=== PATIENT | female | born 1990 | race Two or more races ===

== ENCOUNTER 2025-06-17 09:08 | Outpatient (AMB) | payer MEDICAID, SELFPAY ==
[2025-06-17 09:27] VITALS: BP 126/86; PULSE 91; RESP 17; TEMP 36.2; O2SAT 96; BMI 35.8
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
== END 2025-06-17 10:02 | disposition home or self-care (01) ==
LOC: HODSOBC 09:08
PROVIDERS: Supervising Provider Advanced Practice Midwife; Visit Provider Advanced Practice Midwife
DX: O09.92 Supervision of high risk pregnancy, unspecified, second trimester (principal); O99.342 Other mental disorders complicating pregnancy, second trimester; F41.9 Anxiety disorder, unspecified; Z3A.19 19 weeks gestation of pregnancy; Z23 Encounter for immunization; Z87.891 Personal history of nicotine dependence
CPT/HCPCS: 90471; 90715; 99205; G0463

== ENCOUNTER 2025-07-06 22:33 | Observation (INO) | payer MEDICAID, SELFPAY ==
[2025-07-06 22:41] VITALS: BP 135/92; PULSE 100
[2025-07-06 23:01] VITALS: BP 134/84; PULSE 94
[2025-07-06 23:02] VITALS: BP 135/92; PULSE 100; RESP 16; TEMP 37.3; BMI 35.3
[2025-07-06 23:16] VITALS: BP 118/76; PULSE 94
--- NOTE | 2025-07-06 23:16 | XR_ITS ---
Examination: Complete OB ultrasound greater than 14 weeks Date and time of exam: July 06, 2025, 11:52 PM INDICATIONS: Decreased movement today Findings: Viable intrauterine single fetus with single amniotic sac presentation Vertex Cardiac motion 132 BPM Placenta anterior grade 2 Umbilical cord insertion seen. Amniotic fluid index 17.3 cm Cervix 4.76 cm Ovary is obscured by bowel gas. Composite estimated gestational age based on BPD, head circumference, abdominal circumference, femur length is 36 weeks 1 day Estimated weight 2875.9 g. Survey of intracranial anatomy, spinal anatomy, abdominal anatomy, four-chamber heart performed with no abnormalities identified. Impression: Viable intrauterine gestation vertex presentation.
[2025-07-06 23:31] VITALS: BP 124/82; PULSE 92
[2025-07-06 23:47] VITALS: BP 134/90; PULSE 90
[2025-07-07] VITALS (7 sets, daily range): BP systolic 130–142; BP diastolic 71–96; PULSE 83–97
--- NOTE | 2025-07-07 00:05 | XR_ITS ---
Examination: Biophysical profile, ultrasound Date and time of exam: July 07, 2025, 0029 hours INDICATIONS: Decreased movement today Technique: Multiple transabdominal sonographic images of the pelvis abdomen obtained. Attention is directed to the breathing movement, gross body movement, amniotic fluid volume and tone. Findings: Amniotic fluid index 16.8 cm Total biophysical profile is 8 of 8. breathing movement is 2. Gross body movement is 2. tone is 2. Qualitative amniotic fluid volume is 2 Impression: Biophysical profile is 8 of 8.
--- NOTE | 2025-07-07 01:38 | PRELIM_ITS ---
Obstetric ultrasound with Doppler. July 06, 2025 2352 hours Clinical history: Decreased movement Comparison: None. Findings: There is a gravid uterus with a live fetus in vertex presentation of mean gestational age 36 weeks and 1 day (by biometry). cardiac activity is present at a heart rate of 132 beats per minute. The placenta is anterior in location, maturity grade 2. There is no evidence of placenta previa or retroplacental hemorrhage. Amniotic fluid is adequate (CECILIA = 17.3 cm). Estimated weight is 2876 grams+/- 426 grams. The ovaries were not visualized. No abnormalities by Doppler. Impression: Gravid uterus with a single live fetus in vertex presentation of mean gestational age 36 weeks 1 day. Report Electronically Signed By: Dg Reina 07/07/2025 1:37:14 AM [EST]
[2025-07-07 02:09] LABS: Collection Type, Urine Clean Catch
[2025-07-07 02:10] LABS: Basophils # (Auto) 0.0 Thou/mm3 (0.0-0.2); Basophils % (Auto) 0 % (0-2.5); Eosinophils # (Auto) 0.1 Thou/mm3 (0.0-0.5); Eosinophils % (Auto) 2 % (0-10); Hematocrit 34.1 % (36.0-46.0); Hemoglobin 11.5 g/dL (12.0-16.0); Immature Granulocytes Auto 0.05 Thou/mm3 (0.00-0.00); Lymphocytes # (Auto) 1.8 Thou/mm3 (1.0-4.8); Lymphocytes % (Auto) 25 % (10-50); Mean Corpuscular HGB Conc 33.7 g/dl (31.0-37.0); Mean Corpuscular Hemoglobin 29.6 pg (25.0-35.0); Mean Corpuscular Volume 88 fL (80-100); Monocytes # (Auto) 0.7 Thou/mm3 (0.0-0.8); Monocytes % (Auto) 10 % (0-12); Neutrophils # (Auto) 4.5 Thou/mm3 (1.8-7.7); Neutrophils % (Auto) 62 % (37-80); Nucleated Red Blood Cell # 0.02 Thou/mm3 (0.00-0.00); Nucleated Red Blood Cell % 0 /100 WBC (0); Platelet Count 192 Thou/mm3 (140-440); RDW Standard Deviation 43.8 fL (36.4-46.3); Red Blood Count 3.88 Miln/mm3 (4.00-5.20); White Blood Count 7.3 Thou/mm3 (3.6-11.0)
[2025-07-07 02:14] LABS: Bilirubin,Urine Negative (Negative); Blood,Urine Negative (Negative); Clarity,Urine Clear (Clear/Hazy); Color,Urine Yellow (Lt Yel-Yel); Glucose, Urine Negative (Negative); Ketones,Urine Negative (Negative); Leukocyte Esterase,Urine Negative (Negative); Nitrite,Urine Negative (Negative); PH,Urine 6.5 (5.0-7.0); Protein,Urine Negative (Neg - Trace); RBC,Urine 3 /hpf (0-3); Specific Gravity,Urine 1.020 (1.001-1.035); Squamous Epithelial Cell,Urine 2 /hpf (0-5); Urobilinogen,Urine Negative mg/dL (0.0-1.0); WBC,Urine 2 /hpf (0-5)
[2025-07-07 02:31] LABS: Alanine Aminotransferase 143 U/L (10-49); Albumin, Serum 3.5 gm/dL (3.5-5.0); Albumin/Globulin Ratio 1.5 (1.2-2.2); Alkaline Phosphatase 175 U/L (46-116); Anion Gap 10 (7-16); Aspartate Amino Transferase 72 U/L (0-34); BUN/Creatinine Ratio 14 Ratio (12-20); Bilirubin,Total 0.4 mg/dL (0.3-1.2); Blood Urea Nitrogen 7 mg/dL (9-23); Calcium 9.5 mg/dL (8.3-10.6); Calcium (Corrected) 9.9 mg/dL (8.5-10.1); Carbon Dioxide 21.9 mMol/L (20.0-31.0); Chloride 106 mMol/L (98-107); Creatinine (Component) 0.5 mg/dL (0.6-1.3); Estimated Creatinine Clearance 156.7 mL/min (>60); Fibrinogen 589 mg/dL (175-375); Globulin 2.4 gm/dL (2.3-3.5); Glucose 116 mg/dL (74-106); INR 0.9 (0.9-1.3); LDH (Lactate Dehydrogenase) 171 U/L (120-246); Osmolality,Calculated 274 (275-295); Partial Thromboplastin Time 24.9 Seconds (22.0-36.0); Potassium 3.8 mMol/L (3.4-5.1); Prothrombin Time 9.8 Seconds (9.0-12.2); Sodium 138 mMol/L (136-145); Total Protein 5.9 gm/dL (5.7-8.2); Uric Acid 5.0 mg/dL (3.1-7.8); eGFR > 60 See Note
--- NOTE | 2025-07-07 02:48 | PRELIM_ITS ---
Obstetric ultrasound (limited) with Doppler. July 07, 2025 at 0029 hours Clinical history: Decreased movement. Comparison: Ultrasound of July 06, 2025. Findings: There is a gravid uterus with a live fetus. cardiac activity is present at a heart rate of 133 beats per minute. Amniotic fluid is adequate (CECILIA = 16.8 cm). No abnormalities by Doppler. Biophysical Profile: Breathing : 2 Tone : 2 Amniotic fluid : 2 Movement : 2 BPP Score : 8/8 Impression: Gravid uterus with a single live fetus. Normal biophysical profile as recorded by the technologist infectious disease. Report Electronically Signed By: Dg Reina 07/07/2025 2:47:26 AM [EST]
== END 2025-07-07 03:15 | disposition home or self-care (01) ==
PROVIDERS: Admitting Provider Obstetrics & Gynecology; Visit Provider Obstetrics & Gynecology
DX: O36.8130 Decreased fetal movements, third trimester, not applicable or unspecified (principal); Z3A.36 36 weeks gestation of pregnancy
CPT/HCPCS: 36415; 59899; 76805; 76819; 80053; 81001; 83615; 84550; 85025; 85384; 85610; 85730

== ENCOUNTER 2025-07-13 10:00 | Outpatient (AMB) | payer MEDICAID, SELFPAY ==
[2025-07-13 10:17] VITALS: BP 137/85; PULSE 94; RESP 17; TEMP 36.3; O2SAT 97; BMI 36.7
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
== END 2025-07-13 10:58 | disposition home or self-care (01) ==
PROVIDERS: Supervising Provider Obstetrics & Gynecology; Visit Provider Obstetrics & Gynecology
DX: O09.893 Supervision of other high risk pregnancies, third trimester (principal); O26.893 Other specified pregnancy related conditions, third trimester; L29.9 Pruritus, unspecified; Z3A.36 36 weeks gestation of pregnancy; Z87.891 Personal history of nicotine dependence; Z36.85 Encounter for antenatal screening for Streptococcus B
CPT/HCPCS: 99215; G0463

== ENCOUNTER 2025-07-21 08:58 | Outpatient (AMB) | payer MEDICAID, SELFPAY ==
[2025-07-21 09:09] VITALS: BP 137/92; PULSE 90; RESP 18; TEMP 36.4; O2SAT 97; BMI 36.7
--- NOTE | 2025-07-21 09:09 | OBCLNT_ITS ---
Vital Signs 07/21/25 09:09 Height 1.52 m Height Method Stated Weight 84.878 kg Weight Measurement Method Standing Scale BMI 36.7 BP 137/92 H Blood Pressure Source Automatic Cuff Blood Pressure Location Left Upper Arm Position Sitting Respiration 18 Pulse 90 Pulse Source Monitor Temp 97.5 F Temp Source Oral Pulse Oximetry (%) 97 Oxygen Delivery Method Room Air Allergies/Home Meds Allergies & Medications Allergies No Known Allergies Allergy (Verified 07/21/25 09:10) Medication Reconciliation vits no.126-ferrous fum 28 mg iron-folic acid 800 mcg tablet (Classic ) 1 tab PO DAILY 06/17/25 [History Confirmed 07/21/25] ursodiol 200 mg capsule 200 mg PO BID #30 caps 07/13/25 [Rx Confirmed 07/21/25] ursodiol 200 mg capsule 200 mg PO BID #60 caps 07/21/25 [Rx] Intake Visit Data Collection New Patient or Established: Established Patient (seen at [facility] within 3 years) Reason for Visit:: CARE 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 1. Little interest or pleasure in doing things: not at all 2. Feeling down, depressed, or hopeless: not at all Total score: 0 PHQ-9 3. Trouble falling or staying asleep, or sleeping too much: Not at all 4. Feeling tired or having little energy: Not at all 5. Poor appetite or overeating: Not at all 6. Feeling bad about yourself - or that you are a failure or have let yourself or your family down: Not at all 7. Trouble concentrating on things, such as reading the newspaper or watching television: Not at all 8. Moving or speaking so slowly that other people could have noticed? - Or the opposite - being so fidgety or restless that you have been moving around a lot more than usual: not at all 9. Thoughts that you would be better off or of hurting yourself in some way: Not at all Total score: 0 Source: Developed by Drs. Jomar Akbar, Jesica Miller, Wolf Rodriguez and colleagues, with an educational moshe from [employer]. Depression screen completed yes Social History Living Situation History Lives With: Family Housing: House Tobacco History Smoking Status: Former smoker Alcohol History Alcohol Intake: Former Domestic Abuse History Do You Feel Safe at Home: Yes Care OB Visit Log OB Flowsheet Initial Weight: Not Recorded Date -?-?-?-?-?-?-?-?-?-?-?-?- EGA Weight BP Alb Glu CTX Pres Fundal ht FHR Mov Dilation Station Effacement Hx Notes Visit Note 06/17/25 -?-?-?-?-?-?-?-?-?-?--?-?- 33w 1d 83.234 kg 126/86 absent unknown 33 145 active 34-year-old 3 para 2 for OBI. Patient has a history of irregular menses and no dates. By sonogram at Dr Carrion's office patient's due August 03, 2025. No labs available today. Denies leaking, bleeding, contractions. Reports movement. And patient has a history of anxiety. 34-year-old 3 para 2 for OBI. Patient has a history of irregular menses and no dates. By sonogram at Dr Carrion's office patient's due August 03, 2025. No labs available today. Denies leaking, bleeding, contractions. Reports movement. And patient has a history of anxiety.last visit with dr carrion, 04/18 Third trimester labs with A1c and CMP, CBC and RPR today. [facility] release of records from Dr Carrion's. Tdap today. Discussed labor. Increase fluids. Discussed PIH precautions. Return in 2 weeks OB check Third trimester labs with A1 c and CMP, CBC and RPR today. Medical release of records from Dr Carrion's. Tdap today. Discussed labor. Increase fluids. Discussed PIH precautions. Return in 2 weeks OB check, TDAP. UA: neg protein, repeat BP: 126/86 Third trimester labs with A1 c and CMP, CBC and RPR today. Medical release of records from Dr Maxwell. Tdap today. Discussed labor. Increase fluids. Discussed PIH precautions. Return in 2 weeks OB check, TDAP. UA: neg protein, repeat BP: 126/86. TDAP 07/13/25 -?-?-?-?-?-?-?-?-?-?-?-?- 36w 6d 85.275 kg 137/85 absent cephalic 36 124 active Patient did not do labs at Dr Maxwell. Reports good movement. Denies any signs symptoms of labor. Denies leaking or bleeding. Patient complains of itching over her body including feet and hands. Patient did not do labs at [facility]. Reports good movement. Denies any signs symptoms of labor. Denies leaking or bleeding. Patient complains of itching over her body including feet and hands. URINE: trace protein gbs today ordered OB panel, 1 hour GTT, A1c, CMP, bili, and bile acids. Discussed labor precautions and kick count. Increase fluids. Started on ursodiol 200 twice daily. Return in a week OB check 07/21/25 -?-?-?-?-?-?-?-?-?-?-?-?- 38w 0d 84.878 kg 137/92 absent cephalic 38 135 active Increase eating. Reports good movement. Denies any signs symptoms of labor. Denies leaking, denies bleeding, denies contractions. Increase eating. Reports go od movement. Denies any signs symptoms of labor. Denies leaking, denies bleeding, denies contractions. PIH w/u: elevated livers, BP Increase eating. Reports go od movement. Denies any signs symptoms of labor. Denies leaking, denies bleeding, denies contractions. PIH w/u: elevated livers, BP 140/90, teens/80, CECILIA: 11.3, 3380gm./vtx Ursodiol 200 twice daily ordered. Patient to [facility] for NST BPP, CMP, complete OB, discuss labor precautions. Kick counts twice a day. Increase fluids. 10-week OB check. Schedule induction of labor for July 29, 2025 Ursodiol 200 twice daily ord ered. Patient to [facility] for NST BPP, CMP, complete OB, discuss labor precautions. Kick counts twice a day. Increase fluids. 10-week OB check. Schedule induction of labor for July 29, 2025. Rhogam today,GBS- BIN Calculator Estimated Delivery Date Method Current WG Current Estimate 08/04/25 Ultrasound #2 38w 0d Other Estimates 11/10/25 LMP (Certain) 24w 0d 08/02/25 Ultrasound #1 38w 2d Notes Visit Date: 07/13/25 Last Updated by: Britt Russell CNM 34 yo . poor dates. LMP:02/03/25. EDC: 11/10/25. 1st sono: 04/01/25. IUP @22w1. Final EDC: 08/04/25 Visit Date: 06/17/25 Last Updated by: Britt Russell CNM 34 yo . NO dates. LMP by sono: 08/03/25 Office Procedures OB Clinic LOC & Office Proc's Nursing/Assessment Patient Status: Established Patient OB Clinic Nursing Assessment: Medication Reconciliation, Update PMH in EMR and Vital Signs OB Clinic Coordination of Care: Complex Care and Chronic Disease 1-5, Consent,records obtained, informed consent, Education Simp Pt/Fam, Lab and Imaging orders, Results/Orders obtained and Staff clarify orders Special Needs: Heart tones Established Patient Charge Established Patient Point Assignment: 135 Established Patient Point Charge: EP Level 4 (120-155) Office Meds Rhophylac 1,500 unit (300 mcg)/2 mL injection syringe Performing Provider: Britt Russell CNM Performing Location: [facility] Administered by: Obdulia Mercado MA on 07/21/25 14:01 Dose Route Admin Location Dispensed Lot Number Expiration Date [facility] [employer] Superintendent 1,500 unit IM LEFT GLUTEUS 2 mL [id number] 06/16/27 28689-050-01 [facility] [facility] Assessment & Plan Diagnosis / Problem List (1) Encounter for supervision of high risk in third trimester, antepartum: Status: Acute (2) Cholestasis during : Status: Acute Plan Refill ursodiol 200 twice daily. Patient to labor and delivery today for complete OB, PIH workup, NST BPP. Scheduled induction of labor for July 29. Discussed labor precautions with patient. Kick counts twice a day. Return in a week OB check. RHOGAM today Additional Plan Follow Up: 1 Week (obc)
== END 2025-07-21 09:55 | disposition home or self-care (01) ==
PROVIDERS: Supervising Provider Obstetrics & Gynecology; Visit Provider Obstetrics & Gynecology
DX: O09.893 Supervision of other high risk pregnancies, third trimester (principal); O26.643 Intrahepatic cholestasis of pregnancy, third trimester; Z3A.38 38 weeks gestation of pregnancy; Z29.13 Encounter for prophylactic Rho(D) immune globulin; Z87.891 Personal history of nicotine dependence
CPT/HCPCS: 96372; 99214; J3490; G0463; J2791

== ENCOUNTER 2025-07-21 13:42 | Inpatient (IN) | payer MEDICAID, SELFPAY ==
[2025-07-21] VITALS (84 sets, daily range): BP systolic 112–163; BP diastolic 70–108; PULSE 75–100; RESP 16–97; TEMP 36.4–36.9; O2SAT 91–98; BMI 36.5
--- NOTE | 2025-07-21 10:12 | XR_ITS ---
Examination: Complete OB ultrasound greater than 14 weeks Date and time of exam: July 21, 2025, 1104 hrs. Indications: Diagnosis cholestasis of . Findings: Viable intrauterine single fetus with single amniotic sac presentation cephalic. Cardiac motion 1:30 BPM. Placenta anterior grade 2. Umbilical cord insertion 3 vessel seen. Amniotic fluid index 13.8 cm. spine maternal right. Cervix 2.91 cm. Ovaries obscured by bowel gas.. Composite estimated gestational age based on BPD, head circumference, abdominal circumference, femur length is 37 weeks 5 days. Estimated weight 3380.6 g. Survey of intracranial anatomy, spinal anatomy, abdominal anatomy, four-chamber heart performed with no abnormalities identified. Impression: Viable intrauterine gestation cephalic presentation..
--- NOTE | 2025-07-21 10:13 | XR_ITS ---
Examination: Biophysical profile, ultrasound Date and time of exam: 07/21/2025, 11:04 AM INDICATION: well-being Technique: Multiple transabdominal sonographic images of the pelvis abdomen obtained. Attention is directed to the breathing movement, gross body movement, amniotic fluid volume and tone. Findings: Heart rate: 1 33 bpm CECILIA: 16.8 cm Total biophysical profile is 8 of 8. breathing movement is 2. Gross body movement is 2. tone is 2. Qualitative amniotic fluid volume is 2 Impression: Biophysical profile is 8 of 8.
[2025-07-21 11:03] LABS: Collection Type, Urine Clean Catch
[2025-07-21 11:16] LABS: Basophils # (Auto) 0.0 Thou/mm3 (0.0-0.2); Basophils % (Auto) 0 % (0-2.5); Eosinophils # (Auto) 0.1 Thou/mm3 (0.0-0.5); Eosinophils % (Auto) 2 % (0-10); Hematocrit 32.7 % (36.0-46.0); Hemoglobin 11.3 g/dL (12.0-16.0); Immature Granulocytes Auto 0.07 Thou/mm3 (0.00-0.00); Lymphocytes # (Auto) 1.7 Thou/mm3 (1.0-4.8); Lymphocytes % (Auto) 23 % (10-50); Mean Corpuscular HGB Conc 34.6 g/dl (31.0-37.0); Mean Corpuscular Hemoglobin 30.0 pg (25.0-35.0); Mean Corpuscular Volume 87 fL (80-100); Monocytes # (Auto) 0.9 Thou/mm3 (0.0-0.8); Monocytes % (Auto) 12 % (0-12); Neutrophils # (Auto) 4.6 Thou/mm3 (1.8-7.7); Neutrophils % (Auto) 63 % (37-80); Nucleated Red Blood Cell # 0.00 Thou/mm3 (0.00-0.00); Nucleated Red Blood Cell % 0 /100 WBC (0); Platelet Count 173 Thou/mm3 (140-440); RDW Standard Deviation 42.9 fL (36.4-46.3); Red Blood Count 3.77 Miln/mm3 (4.00-5.20); White Blood Count 7.3 Thou/mm3 (3.6-11.0)
[2025-07-21 11:24] LABS: Bacteria,Urine 4+; Bilirubin,Urine Negative (Negative); Blood,Urine Negative (Negative); Clarity,Urine Turbid (Clear/Hazy); Color,Urine Drk-Yellow (Lt Yel-Yel); Glucose, Urine Negative (Negative); Ketones,Urine Negative (Negative); Leukocyte Esterase,Urine Positive (Negative); Nitrite,Urine Negative (Negative); PH,Urine 6.0 (5.0-7.0); Protein,Urine 1+ (Neg - Trace); RBC,Urine 18 /hpf (0-3); Specific Gravity,Urine 1.028 (1.001-1.035); Squamous Epithelial Cell,Urine 49 /hpf (0-5); Urobilinogen,Urine 4.0 mg/dL (0.0-1.0); WBC,Urine 20 /hpf (0-5)
[2025-07-21 11:33] LABS: Alanine Aminotransferase 181 U/L (10-49); Albumin, Serum 3.4 gm/dL (3.5-5.0); Albumin/Globulin Ratio 1.4 (1.2-2.2); Alkaline Phosphatase 226 U/L (46-116); Anion Gap 10 (7-16); Aspartate Amino Transferase 88 U/L (0-34); BUN/Creatinine Ratio 10 Ratio (12-20); Bilirubin,Total 0.6 mg/dL (0.3-1.2); Blood Urea Nitrogen 5 mg/dL (9-23); Calcium 9.4 mg/dL (8.3-10.6); Calcium (Corrected) 9.9 mg/dL (8.5-10.1); Carbon Dioxide 22.5 mMol/L (20.0-31.0); Chloride 107 mMol/L (98-107); Creatinine (Component) 0.5 mg/dL (0.6-1.3); Estimated Creatinine Clearance 153.2 mL/min (>60); Globulin 2.4 gm/dL (2.3-3.5); Glucose 73 mg/dL (74-106); LDH (Lactate Dehydrogenase) 228 U/L (120-246); Osmolality,Calculated 273 (275-295); Potassium 3.8 mMol/L (3.4-5.1); Sodium 139 mMol/L (136-145); Total Protein 5.8 gm/dL (5.7-8.2); eGFR > 60 See Note
[2025-07-21 11:42] LABS: Uric Acid 5.8 mg/dL (3.1-7.8)
[2025-07-21 11:44] LABS: Fibrinogen 528 mg/dL (175-375); INR 0.9 (0.9-1.3); Partial Thromboplastin Time 25.1 Seconds (22.0-36.0); Prothrombin Time 9.8 Seconds (9.0-12.2)
[2025-07-21 12:54] LABS: Creatinine,Random Urine 210 mg/dL (30-125); Protein Total, Random Urine 143 mg/dL (1-14)
--- NOTE | 2025-07-21 13:18 | PD.ADDPROG ---
Addendum Progress Note Addendum Date of report being addended: 07/21/25 Narrative: The patient is a 34-year-old G4, P3 at 38 weeks with cholestasis, elevated liver enzymes, elevated blood pressures and a urine protein creatinine ratio that is abnormal. Diagnosis is severe preeclampsia and cholestasis. Patient was going to be admitted and induced. Biophysical is normal and NST reactive ultrasound reveals a normal size fetus vertex presentation. Patient at this time declines induction. Stating she has to go home and get her stuff . A urine drug screen was ordered but not done yet. At this time patient will sign out AMA. The risks of , seizures and maternal were given.
[2025-07-21 15:09] LABS: Basophils # (Auto) 0.0 Thou/mm3 (0.0-0.2); Basophils % (Auto) 0 % (0-2.5); Eosinophils # (Auto) 0.1 Thou/mm3 (0.0-0.5); Eosinophils % (Auto) 2 % (0-10); Hematocrit 34.7 % (36.0-46.0); Hemoglobin 12.0 g/dL (12.0-16.0); Immature Granulocytes Auto 0.08 Thou/mm3 (0.00-0.00); Lymphocytes # (Auto) 1.7 Thou/mm3 (1.0-4.8); Lymphocytes % (Auto) 23 % (10-50); Mean Corpuscular HGB Conc 34.6 g/dl (31.0-37.0); Mean Corpuscular Hemoglobin 29.9 pg (25.0-35.0); Mean Corpuscular Volume 87 fL (80-100); Monocytes # (Auto) 0.7 Thou/mm3 (0.0-0.8); Monocytes % (Auto) 9 % (0-12); Neutrophils # (Auto) 4.9 Thou/mm3 (1.8-7.7); Neutrophils % (Auto) 66 % (37-80); Nucleated Red Blood Cell # 0.02 Thou/mm3 (0.00-0.00); Nucleated Red Blood Cell % 0 /100 WBC (0); Platelet Count 185 Thou/mm3 (140-440); RDW Standard Deviation 42.4 fL (36.4-46.3); Red Blood Count 4.01 Miln/mm3 (4.00-5.20); White Blood Count 7.5 Thou/mm3 (3.6-11.0)
[2025-07-21 15:19] LABS: Amphetamine/Metham Scrn,Ur OB Negative (Negative); Benzoylecgonine Screen, Ur OB Negative (Negative); Opiate Screen,Urine OB Negative (Negative); THC Screen,Urine OB Negative (Negative)
[2025-07-21 16:15] LABS: Syphilis Nonreactive (Nonreactive)
[2025-07-21] MEDS: RINGERS LACTATED 1000 ML 1,000 ML 100 ML IV (17:31)
--- NOTE | 2025-07-21 19:38 | PD.LDHP ---
Documentation for date of: 07/21/25 OB Labor/Induct. HPI History of Present Illness Chief complaint: Induction of labor for cholestasis : 3 Para: 2 Term pregnancies: 2 pregnancies: 1 Living children: 2 History of Abortions: Spontaneous and Elective: 1 History of Vaginal deliveries: 2 History of sections: No History of : No BIN: 08/04/25 Gestational Age (weeks): 38 Gestational Age (days): 0 Indication for induction: other (Cholestasis, -induced hypertension with proteinuria) History of present illness: The patient is a 34-year-old -1-0-2 at 38 weeks by LMP consistent with a 22-week ultrasound . She had a history of a vaginal delivery 19 years ago of a 36-week infant followed by a term delivery 15 years ago. She started her care with Dr Gonzalez and went to one-two visits. She had an ultrasound performed at 22 weeks. She then presented to the [facility] OB clinic and was seeing Britt Russell at approximately 33 weeks . She has been reporting itching and was diagnosed with cholestasis. Her bile acids are elevated at over 22. Her liver function tests are both elevated. She was sent over for an NST/ CECILIA and her blood pressures are noted to be elevated. Her UPCR ratio corresponded to 875 mg protein in a 24-hour urine. Her AST was 88 ALT was 181. The patient had an ultrasound revealing an intrauterine measuring 3380 g in vertex presentation. The patient was admitted for an induction of labor secondary to cholestasis with proteinuria and some elevated blood pressures. Of note her blood type is O- and she is rubella nonimmune her strep screen is negative. She just got RhoGAM in the office recently. She has been very noncompliant with her visits. History of Present Dating criteria: LMP confirmed by 2nd trimester US Adequate Care: Yes Ultrasounds: normal mid trimester US Obstetrical complications: other (Limited care, cholestasis diagnosed recently) Medical complications: none Labs Maternal Blood Type: O Neg Labs: Negative: RPR, Hepatitis B, Rubella Titre (Rubella nonimmune), HIV, Chlamydia, Gonorrhea and Group Beta Strep and Unknown: Herpes Type 1, Herpes Type 2 and Covid-19 Past Medical History Surgical History SURGICAL: Negative Section Meds Home Medications and Allergies Home Medications ?Medication ?Instructions ?Recorded ?Confirmed ?Type vits no.126-ferrous fum 1 tab PO DAILY 06/17/25 07/21/25 History 28 mg iron-folic acid 800 mcg tablet (Classic ) Allergies Allergy/AdvReac Type Severity Reaction Status Date / Time No Known Allergies Allergy Verified 07/21/25 09:10 OB Exam Physical Exam Vital signs: Temp Pulse Resp BP Pulse Ox O2 Del Method 98.1 F 88 19 155/86 H 97 Room Air 07/21/25 16:30 07/21/25 19:38 07/21/25 16:30 07/21/25 19:38 07/21/25 13:12 07/21/25 16:30 Routine Abdominal Exam Abdominal: Present soft Comments: Patient has a large abdomen. EFW by Osito's 9 pounds. Detailed Labor and Delivery Exam Dilation (cm): Fingertip Effacement (%): Thank Cervix position: posterior station: -3 Consistency: medium Presentation: Vertex (On ultrasound) Membranes: intact monitor accelerations: 15x15 monitor decelerations: None group home variability: Moderate (11-25) Contraction frequency (min): Irregular Tachysystole: No Contraction intensity: Mild OB Results Labs 07/21/25 14:36 07/21/25 10:41 Labs: Short CBC 07/21/25 07/21/25 Range/Units 10:41 14:36 WBC 7.3 7.5 (3.6-11.0) Thou/mm3 Hgb 11.3 L 12.0 (12.0-16.0) g/dL Hct 32.7 L 34.7 L (36.0-46.0) % Plt Count 173 185 (140-440) Thou/mm3 BMP 07/21/25 10:41 Sodium 139 Potassium 3.8 Chloride 107 Carbon Dioxide 22.5 BUN 5 L Creatinine 0.5 L Glucose 73 L Calcium 9.4 Liver Function 07/21/25 Range/Units 10:41 Total Bilirubin 0.6 (0.3-1.2) mg/dL AST 88 H (0-34) U/L ALT 181 H (10-49) U/L Alkaline Phosphatase 226 H (46-116) U/L Albumin 3.4 L (3.5-5.0) gm/dL Urine 07/21/25 Range/Units 10:05 Urine Color Drk-Yellow A (Lt Yel-Yel) Urine Clarity Turbid A (Clear/Hazy) Urine pH 6.0 (5.0-7.0) Ur Specific [place] 1.028 (1.001-1.035) Urine Protein 1+ A (Neg - Trace) Urine Glucose (UA) Negative (Negative) OB Assessment & Plan Assessment and Plan (1) Cholestasis during : Status: Acute Assessment and plan: For Cytotec induction of labor (2) Rh negative state in antepartum period: Status: Acute (3) Supervision of high risk in third trimester: Status: Acute (4) -induced hypertension in third trimester: Status: Acute Assessment and plan: For Cytotec induction of labor Additional Plan Induction method: per misoprostol protocol Plan: induction Additional Plan Comment: EFW by ultrasound 3380 g by Murray around 9 pounds. (1) Cholestasis during Qualifiers: Trimester: third trimester Qualified Code(s): O26.643 - Intrahepatic cholestasis of , third trimester
[2025-07-22] VITALS (242 sets, daily range): BP systolic 102–183; BP diastolic 58–101; PULSE 51–136; RESP 17–20; TEMP 36.7–37.6; O2SAT 76–100
[2025-07-22] MEDS: fentaNYL CIT INJ 50 mCg/ML AMP 2ML 100 MCG IM (01:43)
[2025-07-22] MEDS: RINGERS LACTATED 1000 ML 1,000 ML 100 ML IV ×3 (05:08→12:29)
[2025-07-22] MEDS: fentaNYL CIT INJ 50 mCg/ML AMP 2ML 100 MCG IVP ×2 (05:39→07:58)
[2025-07-22] MEDS: ONDANSETRON INJ 2 MG/ML INJ 2 ML 4 MG IVP (09:18)
[2025-07-22] MEDS: OXYTOCIN in NS 30 units 30 UNIT/500 ML BAG IV (10:33)
[2025-07-22] MEDS: ACETAMINOPHEN IVPB 1,000 MG/100 ML VIAL 250 MG IV (12:06)
[2025-07-22] MEDS: PROMETHAZINE INJ 25 MG in SODIUM CHLORIDE 0.9% 50 ML IV (12:29)
[2025-07-22] MEDS: MINERAL OIL 30 ML UDC TOP (17:09)
[2025-07-22] MEDS: BENZO/LANO/ALOE (Dermoplast) 60 GM CAN 1 SPRAY TOP (17:09)
[2025-07-22] MEDS: OXYTOCIN in NS 20 units 20 UNIT/1,000 ML BAG 125 UNIT IV (17:10)
--- NOTE | 2025-07-22 17:30 | OBDSUM_ITS ---
Shoulder Dystocia Maneuvers/Procedures [place]: Performed by:: Nursing staff Was fundal Pressure applied? Fundal pressure applied:: No Shoulder Under Symphisis at head delivery:: left Immediate Assessment Immediate assessment:: no apparent injury Surgical Team Notified Surgical team notified:: Yes Vacuum Assisted Delivery General Patient Counseled by physician:: Yes Informed consent to patient:: Yes Estimated weight:: 3628.739 g Cervical dilation:: fully dilated station:: +3 position:: TOBI Molding:: Yes Caput:: Yes Vacuum Application Vacuum type:: Mityvac Vacuum application:: flexing median Cup Placement Flexion point identified:: Yes Cup approp. for head position:: Yes Maternal tissue excluded:: Yes Vacuum Procedure Number of pulls (contractions):: 2 Number of pop-offs:: 1 Recommended range maintained:: Yes Vacuum reduced between pulls:: Yes Advancement made each pull:: Yes Vacuum successful:: Yes Immediate Crystal Evaluation Immediate assessment:: no apparent injury Hand-off care to:: bistro attendant Data ([place]) Data Hx Section: No : 3 Term: 2 : 1 Livin Abortions: Spontaneous & Theraputic: 1 Delivery Data ([place]) Labor Data Initiation of labor: Induction Induction/Augmentation Agent: Cytotec-PO ROM date: 07/22/25 ROM time: 05:35 Amniotic membrane rupture type: Spontaneous Amniotic fluid description: Clear Delivery Data Onset of labor date: 07/22/25 Onset of labor time: 05:40 Complete dilation date: 07/22/25 Complete dilation time: 16:13 delivery date: 07/22/25 Crystal delivery time: 16:54 Placenta delivery date: 07/22/25 Placenta delivery time: 16:55 Stage 1 total time: Labor - Stage 1 Duration 10 hours and 33 minutes Delivered by: Blaine Trevino Delivery nurse: jesenia lucas rn Neworn nurse: nicol Traffic Signal Technician at delivery: No (md dietz called) Support person(s) at delivery: FOB, SISTER OF PATIENT Other staff at delivery: AIR SUPPORT CONTROL OFFICERVENICE AVILA Delivery Method Delivery method: Normal Vaginal Delivery Presentation: Vertex Anesthesia Type Anesthesia Type: Epidural Placenta Placenta delivery description: Spontaneous Cord blood sent to lab: Yes cord blood collection: Cord Blood Type, Arterial Cord Blood Gas and Venous Cord Blood Gas Episiotomy Episiotomy description: Right Mediolateral Umbilical Cord cord description: 3 Vessels, Nuchal Cord and Tight Crystal Data (Negrete) Data order: 1 's gender: Female Identification band number: [id number] weight (gms): 3180 g Weight (pounds): 7 lbs and 0.2 ozs length: 52.07 cm 1 minute: 4 5 minutes: 7 10 minutes: 9
[2025-07-22] MEDS: IBUPROFEN TAB 400 MG TABLET 800 MG PO (18:29)
[2025-07-22] MEDS: ceFAZolin/D5W 2 GM IV 2 GM/100 ML BAG IV (20:13)
[2025-07-22] MEDS: KETOROLAC INJ 30 MG/ML VIAL IVP (20:13)
[2025-07-23] MEDS: HYDROcodone/APAP 5/325 TABLET 1 TAB PO (00:08)
[2025-07-23] MEDS: KETOROLAC INJ 30 MG/ML VIAL IVP (03:53)
[2025-07-23] MEDS: ceFAZolin/D5W 2 GM IV 2 GM/100 ML BAG IV (03:53)
[2025-07-23 04:00] VITALS: BP 130/88; PULSE 84; RESP 18; TEMP 36.9; O2SAT 96
[2025-07-23 06:06] LABS: Basophils # (Auto) 0.0 Thou/mm3 (0.0-0.2); Basophils % (Auto) 0 % (0-2.5); Eosinophils # (Auto) 0.0 Thou/mm3 (0.0-0.5); Eosinophils % (Auto) 0 % (0-10); Hematocrit 30.9 % (36.0-46.0); Hemoglobin 10.6 g/dL (12.0-16.0); Immature Granulocytes Auto 0.14 Thou/mm3 (0.00-0.00); Lymphocytes # (Auto) 1.8 Thou/mm3 (1.0-4.8); Lymphocytes % (Auto) 12 % (10-50); Mean Corpuscular HGB Conc 34.3 g/dl (31.0-37.0); Mean Corpuscular Hemoglobin 30.4 pg (25.0-35.0); Mean Corpuscular Volume 89 fL (80-100); Monocytes # (Auto) 1.0 Thou/mm3 (0.0-0.8); Monocytes % (Auto) 7 % (0-12); Neutrophils # (Auto) 12.1 Thou/mm3 (1.8-7.7); Neutrophils % (Auto) 80 % (37-80); Nucleated Red Blood Cell # 0.02 Thou/mm3 (0.00-0.00); Nucleated Red Blood Cell % 0 /100 WBC (0); Platelet Count 194 Thou/mm3 (140-440); RDW Standard Deviation 45.6 fL (36.4-46.3); Red Blood Count 3.49 Miln/mm3 (4.00-5.20); White Blood Count 15.1 Thou/mm3 (3.6-11.0)
--- NOTE | 2025-07-23 07:08 | ESPR_ITS ---
RE: RONNIE DAVENPORT : 1990 DATE OF SERVICE: 07/23/2025 day number 1. The patient denies any problem or complaint. She is voiding and ambulating and tolerating regular diet, passing flatus. She denies any excessive vaginal bleeding. She denies any dizziness or lightheadedness. She denies any chest pain, palpitations, shortness of breath or lower extremity pain. OBJECTIVE: Vital Signs: Blood pressure is 130/88, heart rate 84, respirations 18, temperature is 98.4, pulse oximetry is 96% on room air. Lungs: Clear to auscultation bilaterally. Heart: Regular rate and rhythm. Abdomen: Fundus is firm. Extremities: Nontender. Hemoglobin pre-delivery is 12.0, post-delivery is 10.6. ASSESSMENT: day number 1, status post vacuum-assisted vaginal delivery. PLAN: care. Discharge home when baby is cleared. DT: 06:55:30 TT: 07:07:00 Ref: [id number] - TID: [id number]
[2025-07-23 07:45] VITALS: BP 147/89; PULSE 76; RESP 18; TEMP 36.8; O2SAT 97
[2025-07-23] MEDS: DOCUSATE SOD 100 MG CAPSULE PO (07:49)
[2025-07-23] MEDS: IBUPROFEN TAB 400 MG TABLET 800 MG PO ×2 (07:49→15:42)
[2025-07-23 12:00] VITALS: BP 143/92; PULSE 87; RESP 16; TEMP 36.8; O2SAT 96
--- NOTE | 2025-07-23 14:34 | PC.NURSE ---
@1400 received call from lab regarding Rhogam, re verified with Dr. Gonzalez at 1406 and TORB to administer the rhogam as ordered.
[2025-07-23 16:00] VITALS: BP 128/89; PULSE 88; RESP 16; TEMP 36.8; O2SAT 98
[2025-07-23 16:38] VITALS: BP 128/89; PULSE 88; RESP 16; TEMP 36.8; O2SAT 98
[2025-07-23 16:44] VITALS: BP 129/85; PULSE 86; RESP 16; TEMP 36.8; O2SAT 98
--- NOTE | 2025-07-23 16:55 | PC.NURSE ---
verified with pharmacist regarding interaction of rhogam and MMR: Rhogam (Rh immune globulin) can decrease the effectiveness of the MMR vaccine because Rhogam contains antibodies that can weaken the immune response to the live virus in the vaccine.?However, for mothers who need both, the?Centers for Disease Control and Prevention (CDC) ?recommends that the MMR vaccine should not be delayed, but rather administered and then tested for immunity 6-8 weeks later to ensure it was effective.?
== END 2025-07-23 18:47 | disposition home or self-care (01) | DRG 560 ==
LOC: S4S1 15:42 → S4SX 15:42 → S4NX 07-22 19:52
PROVIDERS: Advanced Practice Midwife; Obstetrics & Gynecology; Admitting Provider Obstetrics & Gynecology; Referring Provider Obstetrics & Gynecology; Visit Provider Specialist
DX: O26.643 Intrahepatic cholestasis of pregnancy, third trimester (principal); O66.0 Obstructed labor due to shoulder dystocia; O14.14 Severe pre-eclampsia complicating childbirth; Z3A.38 38 weeks gestation of pregnancy; Z37.0 Single live birth; O69.1XX0 Labor and delivery complicated by cord around neck, with compression, not applicable or unspecified; Z67.41 Type O blood, Rh negative; Z91.199 Patient's noncompliance with other medical treatment and regimen due to unspecified reason; Z78.9 Other specified health status
CPT/HCPCS: 36415; 59025; 76805; 76819; 80053; 80307; 81001; 82570; 82575; 83615; 84156; 84550; 85025; 85384; 85610; 85730; 86780; 86850; 86900; 86901; 90707; J0131; J0689; J1885; J2405; J2550; J2590; J2790; J2795; J3010; J7120; A9270